=== PATIENT | female | born 1995 | race Caucasian/White ===

== ENCOUNTER 2016-07-11 13:58 | Emergency (ER) | payer OTHER ==
[~2016-07-11 13:58] MED LIST: NO MEDICATIONS; VISTARIL PO
== END 2016-07-11 14:25 | disposition home or self-care (01) ==
LOC: CFTX 13:58
DX: R59.0 Localized enlarged lymph nodes (principal); J45.909 Unspecified asthma, uncomplicated; Z88.0 Allergy status to penicillin; Z87.891 Personal history of nicotine dependence
CPT/HCPCS: 99282

== ENCOUNTER 2016-07-15 23:02 | Emergency (ER) | payer OTHER ==
--- NOTE | ~2016-07-15 | CR72 ---
[facility] A Service of [facility] RADIOLOGY TEXT RESULTS PATIENT: CHRIS ROSARIO LOCATION: [facility] : [birth year] UNIT #: [id number] AGE: [address]: Jimmy Orr MD SEX: F ORDER DR: [id number] [facility] [address] [place], [place] [address] [id number] MR#: [id number] Acc #: [id number] NAME: CHRIS ROSARIO : 1995 SEX: F STUDY DATE/TIME: 07/15/2016 23:53 UNIT: [facility] ROOM: STUDY DESCRIPTION: CR Chest Single View Portable Attending Physician: Jimmy Orr M.D. Ordering Physician: Jimmy Orr M.D. Primary Care Physician: Primary Care Physician No MEDICAL IMAGING REPORT This report is preliminary unless electronic signature is present EXAM Portable AP view chest COMPARISON None INDICATION 21-year-old female with cough, chest pain and dyspnea tonight. FINDINGS Cardiomediastinal silhouette is normal. No evidence of pneumothorax, pleural effusion or acute airspace disease. IMPRESSION Normal exam. Dictated by... Abdon Skinner M.D. THIS IS AN ELECTRONICALLY VERIFIED REPORT Abdon Skinner M.D. at 07/16/2016 8:23 AM Diane TD: 07/16/2016 08:22 JOB #: [id number] MEDICAL IMAGING REPORT COPY
--- NOTE | ~2016-07-15 | EKG ---
PATIENT: CHRIS ROSARIO UNIT #: [id number] Ventricular Rate: 71 BPM Atrial Rate: 71 BPM P-R Interval: 172 ms QRS Duration: 112 ms Q-T Interval: 400 ms QTC Calculation(Bezet): 434 ms P [place]: 42 degrees Calculated R [place]ial[place]: 71 degrees Calculated T Rial[place]: 61 degrees Diagnosis Line: Normal sinus rhythm Diagnosis Line: Incomplete right bundle branch block Diagnosis Line: Borderline ECG Diagnosis Line: No previous ECGs available Diagnosis Line: Confirmed by JEAN PAUL ODELL MD ([id number]) on 07/16/2016 Diagnosis Line: 7:36:47 PM INTERPRETING MD: JOSE R DURAN
[2016-07-15 23:46] LABS: BASOPHIL# 0.1 X10e3 (0-0.3); BASOPHIL% 0.4 % (0-2.5); EOSINOPHIL# 0.2 X10e3 (0-0.7); EOSINOPHIL% 1.8 % (0.0-7.0); HEMATOCRIT 40.9 % (35.0-45.0); HEMOGLOBIN 13.9 gm/dL (12.0-16.0); LYMPHOCYTE# 3.9 X10e3 (1.0-3.5); LYMPHOCYTE% 31.8 % (17.0-45.0); MEAN CORPUSCULAR HEMOGLOBIN 30.2 PG (28-34); MEAN CORPUSCULAR HGB CONC 33.9 g/dL (30-36); MEAN PLATELET VOLUME 9.1 FL (6.5-11.5); MONOCYTE# 0.6 X10e3 (0-1.0); MONOCYTE% 4.9 % (3.0-12.0); NEUTROPHIL# 7.6 X10e3 (1.5-7.1); NEUTROPHIL% 61.1 % (40-75); PLATELET COUNT 277 X10e3 (140-420); WHITE BLOOD COUNT 12.4 X10e3 (4.0-10.5)
[2016-07-15 23:48] LABS: DIFF IND NO
[2016-07-16 00:10] LABS: BLOOD UREA NITROGEN 15 mg/dL (9-23); BUN/CREATININE RATIO 16.66; CALCIUM SERUM 8.9 mg/dL (8.4-10.2); CARBON DIOXIDE 24 mmol/L (22-31); CHLORIDE 110 mmol/L (100-111); CREATININE SERUM 0.9 mg/dL (0.6-1.4); GLOM FILT RATE Estimated ABOVE60 mL/min (>60); GLUCOSE FASTING 103 mg/dL (70-110); POTASSIUM 3.9 mmol/L (3.5-5.1); SODIUM 140 mmol/L (135-145)
== END 2016-07-16 01:10 | disposition home or self-care (01) ==
LOC: CED 23:02
PROVIDERS: Emergency Medicine
DX: G40.909 Epilepsy, unspecified, not intractable, without status epilepticus (principal); F17.200 Nicotine dependence, unspecified, uncomplicated; F41.9 Anxiety disorder, unspecified; Z90.89 Acquired absence of other organs; Z88.0 Allergy status to penicillin
CPT/HCPCS: 36415; 71010; 80048; 82947; 85025; 93005; 96374; 99284; J1953

== ENCOUNTER 2016-09-01 03:24 | Emergency (ER) | payer OTHER ==
--- NOTE | ~2016-09-01 | EKG ---
PATIENT: CHRIS ROSARIO UNIT #: [id number] Ventricular Rate: 67 BPM Atrial Rate: 67 BPM P-R Interval: 162 ms QRS Duration: 110 ms Q-T Interval: 422 ms QTC Calculation(Bezet): 445 ms P [place]: -6 degrees Calculated R [place]: 69 degrees Calculated T [place]: 53 degrees Diagnosis Line: Normal sinus rhythm Diagnosis Line: Incomplete right bundle branch block Diagnosis Line: Borderline ECG Diagnosis Line: When compared with ECG of 15-JUL-2016 23:20, Diagnosis Line: No significant change was found Diagnosis Line: Confirmed by JEAN PAUL ODELL MD ([id number]) on 09/02/2016 Diagnosis Line: 5:29:51 AM INTERPRETING MD: JOSE R DURAN
== END 2016-09-03 19:02 | disposition home or self-care (01) ==
LOC: CED 03:24
DX: R07.89 Other chest pain (principal); R56.9 Unspecified convulsions; Z88.0 Allergy status to penicillin
CPT/HCPCS: 93005; 99284

== ENCOUNTER 2016-09-25 00:27 | Emergency (ER) | payer OTHER ==
[2016-09-25 01:30] LABS: BASOPHIL# 0.1 X10e3 (0-0.3); BASOPHIL% 0.4 % (0-2.5); EOSINOPHIL# 0.3 X10e3 (0-0.7); EOSINOPHIL% 2.4 % (0.0-7.0); HEMATOCRIT 40.1 % (35.0-45.0); HEMOGLOBIN 13.5 gm/dL (12.0-16.0); LYMPHOCYTE# 4.6 X10e3 (1.0-3.5); LYMPHOCYTE% 35.5 % (17.0-45.0); MEAN CELL VOLUME 87.9 FL (83-96); MEAN CORPUSCULAR HEMOGLOBIN 29.7 PG (28-34); MEAN CORPUSCULAR HGB CONC 33.8 g/dL (30-36); MEAN PLATELET VOLUME 9.1 FL (6.5-11.5); MONOCYTE# 0.8 X10e3 (0-1.0); MONOCYTE% 6.6 % (3.0-12.0); NEUTROPHIL# 7.1 X10e3 (1.5-7.1); NEUTROPHIL% 55.1 % (40-75); PLATELET COUNT 232 X10e3 (140-420); RED BLOOD COUNT 4.56 X10e (3.90-5.30); WHITE BLOOD COUNT 12.9 X10e3 (4.0-10.5)
[2016-09-25 01:32] LABS: DIFF IND NO
[2016-09-25 02:12] LABS: BLOOD UREA NITROGEN 12 mg/dL (9-23); BUN/CREATININE RATIO 17.14; CALCIUM SERUM 8.7 mg/dL (8.4-10.2); CARBON DIOXIDE 23 mmol/L (22-31); CHLORIDE 108 mmol/L (100-111); CREATININE SERUM 0.7 mg/dL (0.6-1.4); GLOM FILT RATE Estimated 123.9 mL/min (>60); GLUCOSE FASTING 106 mg/dL (70-110); POTASSIUM 3.5 mmol/L (3.5-5.1); SODIUM 139 mmol/L (135-145)
[2016-09-25 02:24] LABS: ALCOHOL BLOOD <5 mg/dL (0)
[2016-09-25 04:34] LABS: URINE SOURCE CLEAN CATCH
[2016-09-25 04:43] LABS: CULTURE INDICATED? YES; URINE APPEARANCE CLOUDY; URINE BACTERIA AUWI 2+ (NEGATIVE); URINE BILIRUBIN NEG (NEG); URINE BLOOD NEG (NEG); URINE COLOR DK YELLOW; URINE GLUCOSE NEG (NEG); URINE KETONE NEG (NEG); URINE LEUKOCYTE ESTERASE 2+ (NEG); URINE NITRATE NEG (NEG); URINE PH 5.5 (5-8); URINE PROTEIN NEG (NEG); URINE SPECIFIC GRAVITY 1.024 (1.003-1.035); URINE SQUAMOUS EPITHELIAL CELL MOD /[HPF]; UWBCS1 AUWI 25-50 (0-5)
[2016-09-25 04:58] LABS: AMPHETAMINE NEG (NEG); BARBITURATES NEG (NEG); BENZODIAZEPINES NEG (NEG); COCAINE NEG (NEG); MARIJUANA POS (NEG); OPIATES NEG (NEG); TRICYCLIC ANTIDEPRESSANTS NEG (NEG); U METHADONE NEG (NEG)
== END 2016-09-25 05:51 | disposition home or self-care (01) ==
LOC: CED 00:27
PROVIDERS: Emergency Medicine
DX: G40.909 Epilepsy, unspecified, not intractable, without status epilepticus (principal); N39.0 Urinary tract infection, site not specified; F17.210 Nicotine dependence, cigarettes, uncomplicated; Z88.0 Allergy status to penicillin
CPT/HCPCS: 36415; 80048; 80307; 81003; 82947; 84703; 85025; 87086; 96360; 99284; G0480

== ENCOUNTER 2016-12-25 20:39 | Emergency (ER) | payer OTHER ==
--- NOTE | ~2016-12-25 | EKG ---
PATIENT: CHRIS ROSARIO UNIT #: [id number] Ventricular Rate: 70 BPM Atrial Rate: 70 BPM P-R Interval: 164 ms QRS Duration: 120 ms Q-T Interval: 416 ms QTC Calculation(Bezet): 449 ms P [place]: 15 degrees Calculated R [place]: 74 degrees Calculated T [place]: 59 degrees Diagnosis Line: Normal sinus rhythm Diagnosis Line: Non-specific intra-ventricular conduction delay Diagnosis Line: Borderline ECG Diagnosis Line: No previous ECGs available Diagnosis Line: Confirmed by JEAN PAUL ODELL MD ([id number]) on 12/26/2016 Diagnosis Line: 4:53:55 PM INTERPRETING MD: JOSE R DURAN
[2016-12-25 23:27] LABS: BUN/CREATININE RATIO 18.33; CREATININE SERUM 0.6 mg/dL (0.6-1.4); GLOM FILT RATE Estimated 130.3 mL/min (>60); POTASSIUM 3.4 mmol/L (3.5-5.1)
== END 2016-12-25 23:55 | disposition home or self-care (01) ==
LOC: CED 20:39
PROVIDERS: Emergency Medicine
DX: G40.909 Epilepsy, unspecified, not intractable, without status epilepticus (principal); F17.210 Nicotine dependence, cigarettes, uncomplicated; Z88.0 Allergy status to penicillin
CPT/HCPCS: 36415; 80048; 82947; 84703; 93005; 96361; 96365; 99284; J1953

== ENCOUNTER 2017-01-06 11:31 | Emergency (ER) | payer OTHER ==
[~2017-01-06] VITALS: Ht 172.7 cm; Wt 63.5 kg
--- NOTE | ~2017-01-06 | EKG ---
PATIENT: CHRIS ROSARIO UNIT #: [id number] Ventricular Rate: 65 BPM Atrial Rate: 65 BPM P-R Interval: 164 ms QRS Duration: 100 ms Q-T Interval: 400 ms QTC Calculation(Bezet): 416 ms P [place]: -13 degrees Calculated R Garrett: 68 degrees Calculated T Garrett: 52 degrees Diagnosis Line: Normal sinus rhythm Diagnosis Line: Normal ECG Diagnosis Line: Diagnosis Line: Confirmed by JEAN PAUL ODELL MD ([id number]) on 01/07/2017 Diagnosis Line: 7:16:00 AM INTERPRETING MD: JOSE R DURAN
[2017-01-06 12:00] LABS: BASOPHIL# 0.1 X10e3 (0-0.3); BASOPHIL% 0.7 % (0-2.5); EOSINOPHIL# 0.2 X10e3 (0-0.7); EOSINOPHIL% 2.3 % (0.0-7.0); HEMATOCRIT 43.9 % (35.0-45.0); HEMOGLOBIN 14.7 gm/dL (12.0-16.0); LYMPHOCYTE% 29.5 % (17.0-45.0); MEAN CELL VOLUME 89.6 FL (83-96); MEAN CORPUSCULAR HGB CONC 33.5 g/dL (30-36); MEAN PLATELET VOLUME 8.6 FL (6.5-11.5); MONOCYTE# 0.5 X10e3 (0-1.0); MONOCYTE% 5.2 % (3.0-12.0); NEUTROPHIL# 6.3 X10e3 (1.5-7.1); NEUTROPHIL% 62.3 % (40-75); PLATELET COUNT 301 X10e3 (140-420); RED CELL DISTRIBUTION WIDTH 13.7 % (11.0-15.5); WHITE BLOOD COUNT 10.1 X10e3 (4.0-10.5)
[2017-01-06 12:02] LABS: DIFF IND NO
[2017-01-06 12:29] LABS: URINE SOURCE CLEAN CATCH
[2017-01-06 12:35] LABS: URINE APPEARANCE CLEAR; URINE BILIRUBIN NEG (NEG); URINE BLOOD NEG (NEG); URINE COLOR DK YELLOW; URINE GLUCOSE NEG (NEG); URINE KETONE TRACE (NEG); URINE LEUKOCYTE ESTERASE TRACE (NEG); URINE NITRATE NEG (NEG); URINE PH 5.5 (5-8); URINE PROTEIN NEG (NEG); URINE SPECIFIC GRAVITY 1.031 (1.003-1.035); URINE UROBILINOGEN 0.2 MG/DL (NEG)
[2017-01-06 12:35] LABS: CALCIUM SERUM 9.1 mg/dL (8.4-10.2); CREATININE SERUM 0.5 mg/dL (0.6-1.4); GLOM FILT RATE Estimated 138.4 mL/min (>60); POTASSIUM 4.1 mmol/L (3.5-5.1)
[2017-01-06 12:38] LABS: CULTURE INDICATED? YES; URBCS1 AUWI 0-2 /[HPF] (0-2); URINE BACTERIA AUWI 1+ (NEGATIVE); URINE SQUAMOUS EPITHELIAL CELL OCC /[HPF]
[2017-01-06 12:42] LABS: U HYALINE CASTS AUWI 0-2 /[LPF]
[2017-01-06 12:51] LABS: AMPHETAMINE NEG (NEG); BARBITURATES NEG (NEG); BENZODIAZEPINES NEG (NEG); COCAINE NEG (NEG); MARIJUANA POS (NEG); OPIATES NEG (NEG); TRICYCLIC ANTIDEPRESSANTS NEG (NEG); U METHADONE NEG (NEG)
== END 2017-01-06 14:47 | disposition home or self-care (01) ==
LOC: CED 11:31
PROVIDERS: Emergency Medicine
DX: G40.909 Epilepsy, unspecified, not intractable, without status epilepticus (principal); F32.9 Major depressive disorder, single episode, unspecified; F17.210 Nicotine dependence, cigarettes, uncomplicated
CPT/HCPCS: 36415; 80048; 80307; 81003; 84703; 85025; 87086; 93005; 96360; 99284

== ENCOUNTER 2017-02-04 15:04 | Emergency (ER) | payer OTHER ==
[~2017-02-04] VITALS: Ht 170.2 cm; Wt 63.5 kg
== END 2017-02-04 17:38 | disposition home or self-care (01) ==
LOC: CED 15:04
DX: F44.5 Conversion disorder with seizures or convulsions (principal); S16.1XXA Strain of muscle, fascia and tendon at neck level, initial encounter; X58.XXXA Exposure to other specified factors, initial encounter
CPT/HCPCS: 82947; 99284